=== PATIENT | female | born 1960 | race Caucasian/White ===

== ENCOUNTER 2017-09-26 08:36 | Emergency (ER) | payer OTHER ==
[~2017-09-26] VITALS: Ht 157.5 cm; Wt 81.7 kg
[~2017-09-26 08:36] MED LIST: ALBU90OI INH; ALBU90OI61 INH; AMOX500 PO; Aspirin EC325 MG PO; CIPRO500 MG PO; CODGUAEL PO; Flagyl500 MG PO; HYDACE5 PO; Hydrochlorothia25 MG PO; IBUP800 PO; LEVFLO500 PO; LISI20 PO; LOPE2C PO; NAPR500 PO; NICO14TP TOP; Norco 5-325 Ta1 EACH PO; OLME20-12. PO; OMEP20ER PO; OXYACE5T PO; PARO25 PO; PRED20 PO; PROM25 PO; TIOT18; TRAM50 PO; Ventolin Soln3 ML INH; Zofran Odt4 MG SL
[2017-09-26] MEDS ORDERED: HYDCHL25 PO (09:15)
[2017-09-26] MEDS ORDERED: LOSA50 PO (09:15)
[2017-09-26] MEDS ORDERED: MECL12.5 PO (10:51)
== END 2017-09-26 10:58 | disposition home or self-care (01) ==
LOC: ER 08:36
DX: H83.09 Labyrinthitis, unspecified ear (principal); R42 Dizziness and giddiness; Z88.8 Allergy status to other drugs, medicaments and biological substances; Z88.1 Allergy status to other antibiotic agents; Z79.899 Other long term (current) drug therapy; Z79.82 Long term (current) use of aspirin; F43.10 Post-traumatic stress disorder, unspecified; F32.9 Major depressive disorder, single episode, unspecified; I10 Essential (primary) hypertension; F17.210 Nicotine dependence, cigarettes, uncomplicated
CPT/HCPCS: 36415; 93005; 93010; 99283

== ENCOUNTER 2019-02-27 10:54 | Emergency (ER) | payer OTHER ==
[~2019-02-27] VITALS: Ht 160 cm; Wt 89.4 kg
[~2019-02-27 10:54] MED LIST changes: +HYDCHL25 PO; +LOSA50 PO; +MECL12.5 PO
[2019-02-27 11:33] LABS: Source, Urine Clean Catch
[2019-02-27 11:35] LABS: Bilirubin, Urine Neg (Neg); Blood, Urine 2+ (Neg); Glucose Qualitative, Urine Neg (Neg); Ketones, Urine 1+ (Neg); Leukocyte Esterase, Urine 1+ (Neg); Nitrite, Urine Neg (Neg); Protein, Urine Neg (Neg); Specific Gravity, Urine 1.015 (1.003-1.022); Urobilinogen, Urine 2+ (Normal); pH, Urine 6.5 (5.0-8.0)
[2019-02-27 11:46] LABS: Appearance, Urine Clear (Clear); Color, Urine Yellow (P-Yellow)
[2019-02-27 11:49] LABS: White Blood Cells, Urine 0-2 /hpf (0-5)
[2019-02-27 11:50] LABS: Bacteria Few /hpf; Mucus Light (0-Heavy); Squamous Epithelial Cells Mod /hpf (Few)
[2019-02-27 12:00] LABS: BASOPHILS ABSOLUTE AUTO 0.05 K/mm3 (0.00-0.23); BASOPHILS PERCENT AUTO 1 % (0-2); EOSINOPHILS ABSOLUTE AUTO 0.17 K/mm3 (0.00-0.68); EOSINOPHILS PERCENT AUTO 3 % (0-6); Hematocrit 49.2 % (33.0-51.0); Hemoglobin 16.5 g/dL (11.5-16.0); IMMATURE GRAN ABSOLUTE AUTO 0.01 K/mm3 (0.00-0.10); IMMATURE GRAN PERCENT AUTO 0 % (0-1); LYMPHOCYTES ABSOLUTE AUTO 1.44 K/mm3 (0.84-5.20); LYMPHOCYTES PERCENT AUTO 22 % (21-46); MONOCYTES ABSOLUTE AUTO 0.68 K/mm3 (0.16-1.47); MONOCYTES PERCENT AUTO 10 % (4-13); Mean Corpuscular HGB 31.1 pg (26.0-34.0); Mean Corpuscular HGB Conc 33.5 g/dL (31.5-36.5); Mean Corpuscular Volume 93 fL (80-100); Mean Platelet Volume 9.3 fL (9.1-12.4); NEUTROPHILS ABSOLUTE AUTO 4.33 K/mm3 (1.96-9.15); NEUTROPHILS PERCENT AUTO 65 % (41-73); Platelet Count 274 K/mm3 (150-400); RDW Coefficient Variation 12.2 % (11.7-14.2); RDW Standard Deviation 42.2 fL (35.1-46.3); White Blood Cell Count 6.68 K/mm3 (4.00-11.30)
[2019-02-27 12:15] LABS: Alanine Aminotransfer (ALT/SGP 32 U/L (12-78); Albumin, Blood 3.4 g/dL (3.4-5.0); Albumin/Globulin Ratio 0.9 (0.8-1.8); Alk Phos 84 U/L (50-136); Anion Gap 3 mmol/L (6-16); Aspartate Aminotrans (AST/SGOT 17 U/L (12-37); Bilirubin, Total 0.3 mg/dL (0.1-1.0); Blood Urea Nitrogen 14 mg/dL (8-24); Bun/Creatinine Ratio 23.7 (12.0-20.0); CO2, Blood 31 mmol/L (21-32); Calcium, Blood 8.6 mg/dL (8.5-10.1); Chloride, Blood 107 mmol/L (98-108); Creatinine, Blood 0.59 mg/dL (0.40-1.00); Globulin, Blood 3.8 g/dL (2.2-4.0); Glomerular Filtration Rate >60 (60-); Glucose, Blood 107 mg/dL (70-99); Potassium, Blood 4.1 mmol/L (3.5-5.5); Sodium, Blood 141 mmol/L (136-145); Total Protein, Blood 7.2 g/dL (6.4-8.2)
[2019-02-27] MEDS ORDERED: LOSARTAN-HCTZ1 EACH PO (13:45)
[2019-02-27] MEDS ORDERED: IBUP600 PO (13:45)
[2019-02-27] MEDS ORDERED: Ultram50 MG PO (13:45)
[2019-02-27] MEDS ORDERED: Robaxin-750750 MG PO (13:45)
== END 2019-02-27 14:10 | disposition home or self-care (01) ==
LOC: ER 10:54
PROVIDERS: Emergency Medicine
DX: M54.5 Low back pain (principal); I10 Essential (primary) hypertension; Z88.8 Allergy status to other drugs, medicaments and biological substances; Z88.1 Allergy status to other antibiotic agents; Z79.899 Other long term (current) drug therapy; Z79.82 Long term (current) use of aspirin; F43.10 Post-traumatic stress disorder, unspecified; F32.9 Major depressive disorder, single episode, unspecified; Z72.0 Tobacco use
CPT/HCPCS: 80053; 81001; 83690; 85025; 87086; 96374; 99283-25; J1885

== ENCOUNTER 2021-01-24 15:19 | Emergency (ER) | payer OTHER ==
[~2021-01-24] VITALS: Ht 157.5 cm; Wt 108.9 kg
[~2021-01-24 15:19] MED LIST changes: +IBUP600 PO; +LOSARTAN-HCTZ1 EACH PO; +Robaxin-750750 MG PO; +Ultram50 MG PO
[2021-01-24 16:16] LABS: BASOPHILS ABSOLUTE AUTO 0.05 K/mm3 (0.00-0.23); BASOPHILS PERCENT AUTO 0 % (0-2); EOSINOPHILS ABSOLUTE AUTO 0.14 K/mm3 (0.00-0.68); EOSINOPHILS PERCENT AUTO 1 % (0-6); Hematocrit 47.4 % (33.0-51.0); Hemoglobin 16.4 g/dL (11.5-16.0); IMMATURE GRAN ABSOLUTE AUTO 0.03 K/mm3 (0.00-0.10); IMMATURE GRAN PERCENT AUTO 0 % (0-1); LYMPHOCYTES ABSOLUTE AUTO 1.69 K/mm3 (0.84-5.20); LYMPHOCYTES PERCENT AUTO 15 % (21-46); MONOCYTES ABSOLUTE AUTO 1.05 K/mm3 (0.16-1.47); MONOCYTES PERCENT AUTO 9 % (4-13); Mean Corpuscular HGB 30.1 pg (26.0-34.0); Mean Corpuscular HGB Conc 34.6 g/dL (31.5-36.5); Mean Corpuscular Volume 87 fL (80-100); Mean Platelet Volume 9.2 fL (9.1-12.4); NEUTROPHILS ABSOLUTE AUTO 8.58 K/mm3 (1.96-9.15); NEUTROPHILS PERCENT AUTO 74 % (41-73); Platelet Count 340 K/mm3 (150-400); RDW Coefficient Variation 12.2 % (11.7-14.2); Red Blood Cell Count 5.44 M/mm3 (3.80-5.20); White Blood Cell Count 11.54 K/mm3 (4.00-11.30)
[2021-01-24 16:35] LABS: Alanine Aminotransfer (ALT/SGP 29 U/L (12-78); Albumin, Blood 3.4 g/dL (3.4-5.0); Albumin/Globulin Ratio 0.8 (0.8-1.8); Alk Phos 99 U/L (50-136); Anion Gap 4 mmol/L (6-16); Aspartate Aminotrans (AST/SGOT 15 U/L (12-37); Bilirubin, Total 0.5 mg/dL (0.1-1.0); Blood Urea Nitrogen 8 mg/dL (8-24); Bun/Creatinine Ratio 14.7 (12.0-20.0); CO2, Blood 29 mmol/L (21-32); Calcium, Blood 8.4 mg/dL (8.5-10.1); Chloride, Blood 98 mmol/L (98-108); Creatinine, Blood 0.54 mg/dL (0.40-1.00); Glomerular Filtration Rate >60 (60-); Glucose, Blood 89 mg/dL (70-99); Potassium, Blood 4.1 mmol/L (3.5-5.5); Sodium, Blood 131 mmol/L (136-145); Total Protein, Blood 7.4 g/dL (6.4-8.2); Troponin I <0.015 ng/mL (0.000-0.040)
[2021-01-24] MEDS ORDERED: Ventolin5 MG/1 ML INH (18:30)
[2021-01-24] MEDS ORDERED: ALBU90OI INH (18:30)
[2021-01-24] MEDS ORDERED: Toprol Xl25 MG PO (20:20)
[2021-01-24] MEDS ORDERED: HYDCHL25 PO (20:20)
== END 2021-01-24 21:19 | disposition home or self-care (01) ==
LOC: ER 15:19
PROVIDERS: Physician Assistant
DX: I10 Essential (primary) hypertension (principal); R60.0 Localized edema; J44.9 Chronic obstructive pulmonary disease, unspecified; F17.210 Nicotine dependence, cigarettes, uncomplicated; Z79.82 Long term (current) use of aspirin; Z88.8 Allergy status to other drugs, medicaments and biological substances; Z88.1 Allergy status to other antibiotic agents; Z79.899 Other long term (current) drug therapy
CPT/HCPCS: 71046; 80053; 83880; 84484; 85025; 93005; 93010; 96374; 99284-25; A9270; J1940

== ENCOUNTER 2022-04-03 08:21 | Inpatient (IN) | payer OTHER ==
[~2022-04-03] VITALS: Ht 157.5 cm; Wt 101.9 kg
[~2022-04-03 08:21] MED LIST changes: +Toprol Xl25 MG PO; +Ventolin5 MG/1 ML INH
[2022-04-03] MEDS ORDERED: AMLODIPINE BESYL5 MG PO (08:45)
[2022-04-03] MEDS ORDERED: METFORMIN500 MG/51 PO (08:46)
[2022-04-03] MEDS ORDERED: ANORO ELLIPTA1 EAC1 INH (08:46)
[2022-04-03] MEDS ORDERED: Cyclobenzaprine5 MG PO (08:46)
[2022-04-03 08:56] LABS: BASOPHILS ABSOLUTE AUTO 0.03 K/mm3 (0.00-0.23); BASOPHILS PERCENT AUTO 1 % (0-2); EOSINOPHILS ABSOLUTE AUTO 0.28 K/mm3 (0.00-0.68); EOSINOPHILS PERCENT AUTO 4 % (0-6); Hematocrit 45.7 % (33.0-51.0); Hemoglobin 15.4 g/dL (11.5-16.0); IMMATURE GRAN ABSOLUTE AUTO 0.02 K/mm3 (0.00-0.10); IMMATURE GRAN PERCENT AUTO 0 % (0-1); LYMPHOCYTES ABSOLUTE AUTO 1.28 K/mm3 (0.84-5.20); LYMPHOCYTES PERCENT AUTO 20 % (21-46); MONOCYTES ABSOLUTE AUTO 0.51 K/mm3 (0.16-1.47); MONOCYTES PERCENT AUTO 8 % (4-13); Mean Corpuscular HGB 29.6 pg (26.0-34.0); Mean Corpuscular HGB Conc 33.7 g/dL (31.5-36.5); Mean Corpuscular Volume 88 fL (80-100); Mean Platelet Volume 8.9 fL (9.1-12.4); NEUTROPHILS ABSOLUTE AUTO 4.26 K/mm3 (1.96-9.15); NEUTROPHILS PERCENT AUTO 67 % (41-73); Platelet Count 312 K/mm3 (150-400); RDW Coefficient Variation 11.9 % (11.7-14.2); Red Blood Cell Count 5.21 M/mm3 (3.80-5.20); White Blood Cell Count 6.38 K/mm3 (4.00-11.30)
[2022-04-03 08:57] LABS: Base Excess Venous 5.1 mmol/L; Bicarbonate Venous 27.7 mmol/L (24.0-30.0); PCO2 Venous 51.2 mmHg (38-42); pH Blood Venous 7.38 (7.34-7.37)
[2022-04-03 09:14] LABS: Albumin, Blood 3.4 g/dL (3.4-5.0); Albumin/Globulin Ratio 0.9 (0.8-1.8); Bilirubin, Direct 0.1 mg/dL (0.0-0.3); Bilirubin, Indirect 0.3 mg/dL (0.1-0.7); Bilirubin, Total 0.4 mg/dL (0.1-1.0); Bun/Creatinine Ratio 19.6 (12.0-20.0); Calcium, Blood 8.9 mg/dL (8.5-10.1); Creatinine, Blood 0.51 mg/dL (0.40-1.00); Globulin, Blood 3.9 g/dL (2.2-4.0); Potassium, Blood 4.2 mmol/L (3.5-5.5); Total Protein, Blood 7.3 g/dL (6.4-8.2)
[2022-04-03 10:33] LABS: Influenza A, PCR NEGATIVE (NEGATIVE); Influenza B, PCR NEGATIVE (NEGATIVE); Resp Syncytial Virus, PCR NEGATIVE (NEGATIVE); SARS-Cov-2 (COVID-19) PCR, MMC NEGATIVE (NEGATIVE)
[2022-04-03 11:32] LABS: Base Excess Venous 0.3 mmol/L; Bicarbonate Venous 23.6 mmol/L (24.0-30.0); PCO2 Venous 55.7 mmHg (38-42); pH Blood Venous 7.29 (7.34-7.37)
--- NOTE | 2022-04-03 12:49 | NUR ---
Telephone report received from ED RN at this time. Pt will be coming to [facility] 7 shortly.
--- NOTE | 2022-04-03 14:27 | NUR ---
Pt arrived to [facility] 7 at approx 1315. Alert, oriented, able to speak in phrases. Wearing oxygen at 3 l/min; states that she wears oxygen 2 l/min at all times at home. Able to stand and transfer from the stretcher to the bed in the room with minimal assitance. Occasional cough. Declines the bipap at this time, states that she is hungry and would like to eat. STates that she was prescribed a CPAP/BIPAP machine in the past but that it "never got delivered". I am not sure what happened with this. She also says that she was put on oxygen a year ago, but never had a referral to the rn occupational health, and never had any education about COPD in the outpatient setting. She was able to sit up and eat and drink without difficulty. Levaquin infusing via right arm AC space IV, which is WNL. Vital signs taken; noted that the pt is hypertensive. She says that she did not take any of her medications this morning. These were given to her here. Pt also says that she would like to fill out an advanced directive form with someone. Palliative care order placed for this purpose. SCDs on. Pt's daughter Pam was at the bedside, but after the pt was settled in the room she went to the pt's house to take care of the cat and intends to return later she said.
[2022-04-03 15:36] LABS: Base Excess Venous -1.2 mmol/L; Bicarbonate Venous 22.5 mmol/L (24.0-30.0); PCO2 Venous 52.7 mmHg (38-42); pH Blood Venous 7.29 (7.34-7.37)
--- NOTE | 2022-04-03 16:41 | NUR ---
Pt wore bipap briefly just before the last VBG was drawn.She does not tolerate the bipap well. She remains alert, oriented, and able to transfer independently from the bed to the bedside commode for toileting. Moderate shorness of breath noted during and following activity. Wearing oxygen at 3 l/min; her baseline oxygen dose is 2 l/min. She is coughing after activity, barely bringing up any sputum. What she does cough up is thin, tiny amounts and clear in color.
--- NOTE | 2022-04-03 16:57 | NUR ---
wEARING BIPAP AND TOLERATING IT WELL. BLOOD PRESSURE REMAINS ELEVATED AFTER TAKING HER NORVASC AND HYDROCHLOROTHIAZIDE.
--- NOTE | 2022-04-03 17:02 | NUR ---
Call to Dr. Carter regarding pt's persisent high blood pressure. Left voice mail. The pt appears to be resting comfortably on the bipap at this time, RR 22 / min. spo2 95% on fiO2 35%.
--- NOTE | 2022-04-03 17:49 | NUR ---
Call from Dr. Roman; states that Dr. Rodriguez is covering for [facility]'s admitted patients. Call to Dr. Rodriguez and new order for prn hydralazine received.
--- NOTE | 2022-04-03 18:43 | NUR ---
Pt is tearful, saying that she is afraid that the pain in her back might be from cancer. States that she also feels restless in her legs and feet, and that when this happens at home she gets up and paces around. Took off bipap, now sitting on side of bed . Requesting a fan to help her feel cooler also. Pt requesting COPD educational materials. Order for RT COPD education was placed, and also printed pt education materials for her to read in the meantime. Provided emtional reassurance.
[2022-04-03 20:42] LABS: pH Blood Venous 7.39 (7.34-7.37)
[2022-04-03 20:43] LABS: Base Excess Venous 4.2 mmol/L; Bicarbonate Venous 27.3 mmol/L (24.0-30.0)
--- NOTE | 2022-04-04 06:18 | NUR ---
Assumed care of pt at 1900. A/Ox4, very anxious. Reports recent upper back pain, but is able to manage with repositioning. Patient reports RLS although undiagnosed. Patient multiple times t/o the night had to get up to sit at side of bed. Maintains over 92% on 3L NC or Bipap 10/5 30% (for which she wore about 6 hours total. LS coarse in RUL, ISABEL, and RML, and dim LLL RLL. VSS. Will report to dayshift RN.
[2022-04-04 06:41] LABS: Hematocrit 42.6 % (33.0-51.0); Hemoglobin 13.8 g/dL (11.5-16.0); Mean Corpuscular HGB 28.9 pg (26.0-34.0); Mean Corpuscular HGB Conc 32.4 g/dL (31.5-36.5); Mean Corpuscular Volume 89 fL (80-100); Mean Platelet Volume 9.4 fL (9.1-12.4); Platelet Count 337 K/mm3 (150-400); RDW Coefficient Variation 11.9 % (11.7-14.2); RDW Standard Deviation 38.8 fL (35.1-46.3); Red Blood Cell Count 4.78 M/mm3 (3.80-5.20); White Blood Cell Count 11.68 K/mm3 (4.00-11.30)
[2022-04-04 06:52] LABS: Bun/Creatinine Ratio 24.6 (12.0-20.0); Calcium, Blood 8.8 mg/dL (8.5-10.1); Creatinine, Blood 0.45 mg/dL (0.40-1.00)
[2022-04-04 10:54] LABS: pH Blood Venous 7.45 (7.34-7.37)
[2022-04-04 10:55] LABS: Base Excess Venous 8.9 mmol/L; Bicarbonate Venous 31.3 mmol/L (24.0-30.0); PCO2 Venous 47.9 mmHg (38-42)
[2022-04-04] MEDS ORDERED: HYDCHL25 PO (12:09)
[2022-04-04] MEDS ORDERED: METF500 PO (12:11)
[2022-04-04] MEDS ORDERED: METO25ER PO (12:12)
[2022-04-04] MEDS ORDERED: NICO21TP TOP (12:13)
[2022-04-04] MEDS ORDERED: LEVOFLOXACIN750 M1 PO (12:13)
[2022-04-04] MEDS ORDERED: VISBIOME 112.51 EACH PO (12:13)
[2022-04-04] MEDS ORDERED: PRED20 PO (12:14)
--- NOTE | 2022-04-04 13:27 | NUR ---
Summary of two visits. [facility] and Healthcare rep is Pam Garcia [phone]. [facility] Care referral received on admission yesterday for completion of advanced directive per pt request. She voiced concern that she wanted her dion to be her HC proxy and not her estranged . Both advanced directive and POLST forms reviewed in detail with pt and her dion, Pam Garcia. We started completion of AD and pt indicated her choice for for no life prolonging measures if she were found in any of the four conditions listed in the AD form. Currently pt desires Full code status and full treatment but would not want her life prolonged with respiratory support, dialysis or artificial nutrition group home if she did not recover in a number of weeks. Her daughter is supportive of this. Pt names Pam Garcia as her HC call center representative and her other dion, Darius Lal [phone] as an alternate HC call center representative. Upon arrival to introduce myself both dion and pt requested that we fill out an AD together, which we did except for acceptance and witness signatures. Pt also stated she hadn't been given any information re: her COPD from Drs. She states she requested a pulmonology consult and believes that is in the works. I recommended she talk to her drs re: OP Pulmonary Rehab and whether or not she would be appropriate for that in the future. Explained the program and weekly education she would receive in [place]. Discussed smoking cessation with pt as the #1 helpful thing she could do for her lungs/health. Pt is dyspnic at rest with nasal canula O2 in place. Pt appears to be anxious, dyspnic and in discomfort. Assisted her with sitting up in tripod position in bed. She verbalized change of position helped. Time spent discussing advanced care planning documents and considerations. I gave dion/pt booklet "hard choices for loving people to reivew and discuss with PCP. I gave pt POLST form and explained all options. I asked that she discuss further with her PCP. I requested that when AD/POLST completed that she bring copies in to medical records for scanning into her EMR. I instructed her to provide PCP and other Drs with a copy and her surrogate decision makers also. Pt and dion verbalized understanding and appreciation for the the visit. When I returned to bring pt info on Pulmonary Rehab and f/u on am visit, pt reports that she is being d/c'd home today. She is very happy about that.
--- NOTE | 2022-04-04 15:50 | NUR ---
DISCHARGE SUMMARY S/P COPD EXACERBATION, A/O X4, VSS, TOLERATING PO, AMBULATING INDEPENDENTLY OTHER THAN CORD/LINE MANAGEMENT, VOIDING WELL. DISCUSSED DISCHARGE INFORMATION WITH PT INCLUDING HOME CARE, MEDICATIONS, FOLLOW UP APPOINTMENTS, AND WENT OVER PROVIDED EDUCATION ON COPD AND NEW MEDICATIONS. PRINTED COPIES PROVIDED, PT WAS ALSO GIVEN ADDITIONAL COPD INFORMATION PRIOR TO DISCHARGE FROM A MEMBER OF RESPIRATORY THERAPY. PT HAD NO QUESTIONS AT TIME OF DISCHARGE, PT ESCORTED OUT VIA WC TO GO HOME WITH HER DAUGHTER.
== END 2022-04-04 14:42 | disposition home or self-care (01) | DRG 193 ==
LOC: ER 08:21 → PCU 08:22
PROVIDERS: Nurse Practitioner Acute Care; Student in an Organized Health Care Education/Training Program; ADMIT Internal Medicine
PROC: 5A09357 Assistance with Respiratory Ventilation, Less than 24 Consecutive Hours, Continuous Positive Airway Pressure (ICD-10-PCS; principal; 2022-04-04)
DX: J18.9 Pneumonia, unspecified organism (principal); J96.21 Acute and chronic respiratory failure with hypoxia; J96.22 Acute and chronic respiratory failure with hypercapnia; J44.1 Chronic obstructive pulmonary disease with (acute) exacerbation; F41.9 Anxiety disorder, unspecified; E11.9 Type 2 diabetes mellitus without complications; I10 Essential (primary) hypertension; F17.210 Nicotine dependence, cigarettes, uncomplicated; Z20.822 Contact with and (suspected) exposure to COVID-19; F43.10 Post-traumatic stress disorder, unspecified; F32.A Depression, unspecified; K57.90 Diverticulosis of intestine, part unspecified, without perforation or abscess without bleeding; Z99.81 Dependence on supplemental oxygen; Z79.51 Long term (current) use of inhaled steroids; Z88.8 Allergy status to other drugs, medicaments and biological substances; Z88.1 Allergy status to other antibiotic agents; Z79.899 Other long term (current) drug therapy; Z79.82 Long term (current) use of aspirin; Z98.890 Other specified postprocedural states
CPT/HCPCS: 0241U; 36415; 71045; 76705; 80048; 80076; 82803; 82947; 83690; 83735; 83880; 84145; 84484; 85025; 85027; 93005; 93010; 94640; 94644; 94645; 94660; 94664; 94667; 94762; 96365; 96366; 96372; 96375; 96376; 98960; 99285-25; 99406; A9270; G0378; J0360; J0696; J1650; J1885; J1956; J2060; J2405; J2930; J3360; J7030

== ENCOUNTER 2022-04-30 07:36 | Observation (INO) | payer OTHER ==
[~2022-04-30] VITALS: Ht 157.5 cm; Wt 97.8 kg
[~2022-04-30 07:36] MED LIST changes: +AMLODIPINE BESYL5 MG PO; +ANORO ELLIPTA1 EAC1 INH; +Cyclobenzaprine5 MG PO; +LEVOFLOXACIN750 M1 PO; +METF500 PO; +METFORMIN500 MG/51 PO; +METO25ER PO; +NICO21TP TOP; +VISBIOME 112.51 EACH PO
[2022-04-30 08:23] LABS: BASOPHILS ABSOLUTE AUTO 0.03 K/mm3 (0.00-0.23); BASOPHILS PERCENT AUTO 0 % (0-2); EOSINOPHILS ABSOLUTE AUTO 0.25 K/mm3 (0.00-0.68); EOSINOPHILS PERCENT AUTO 3 % (0-6); Hematocrit 47.1 % (33.0-51.0); Hemoglobin 15.3 g/dL (11.5-16.0); IMMATURE GRAN ABSOLUTE AUTO 0.02 K/mm3 (0.00-0.10); IMMATURE GRAN PERCENT AUTO 0 % (0-1); LYMPHOCYTES ABSOLUTE AUTO 0.94 K/mm3 (0.84-5.20); LYMPHOCYTES PERCENT AUTO 12 % (21-46); MONOCYTES ABSOLUTE AUTO 0.46 K/mm3 (0.16-1.47); MONOCYTES PERCENT AUTO 6 % (4-13); Mean Corpuscular HGB 29.1 pg (26.0-34.0); Mean Corpuscular HGB Conc 32.5 g/dL (31.5-36.5); Mean Corpuscular Volume 90 fL (80-100); Mean Platelet Volume 8.7 fL (9.1-12.4); NEUTROPHILS ABSOLUTE AUTO 6.04 K/mm3 (1.96-9.15); NEUTROPHILS PERCENT AUTO 78 % (41-73); Platelet Count 353 K/mm3 (150-400); RDW Coefficient Variation 11.9 % (11.7-14.2); Red Blood Cell Count 5.25 M/mm3 (3.80-5.20); White Blood Cell Count 7.74 K/mm3 (4.00-11.30)
[2022-04-30 08:41] LABS: Albumin, Blood 3.3 g/dL (3.4-5.0); Albumin/Globulin Ratio 0.8 (0.8-1.8); Bilirubin, Total 0.4 mg/dL (0.1-1.0); Bun/Creatinine Ratio 17.6 (12.0-20.0); Calcium, Blood 8.4 mg/dL (8.5-10.1); Creatinine, Blood 0.51 mg/dL (0.40-1.00); Globulin, Blood 4.4 g/dL (2.2-4.0); Potassium, Blood 4.4 mmol/L (3.5-5.5); Total Protein, Blood 7.7 g/dL (6.4-8.2)
--- NOTE | 2022-04-30 10:12 | NUR ---
ED Palliative Care Consult Spoke with Dr Prajapati and discussed case. Based off imaging Pt appears to have metatstatic lung caner with result just being discussed prior to this RN's arrival. Pt resting on gurney upon arrival. Pt's daugher Pam arrives. Discussed plan for hospitalist to consider admiting with Pt and daughter being in agreement. Offered active listening and answered questions. Pt and family express appreciation and report no other concerns at this time. Palliative Care will F/U for supportive visits.
[2022-04-30 10:56] LABS: International Normalized Ratio 0.99; Prothrombin Time Results 10.4 Sec (9.7-11.5)
[2022-04-30 12:20] LABS: Influenza A, PCR NEGATIVE (NEGATIVE); Influenza B, PCR NEGATIVE (NEGATIVE); Resp Syncytial Virus, PCR NEGATIVE (NEGATIVE); SARS-Cov-2 (COVID-19) PCR, MMC NEGATIVE (NEGATIVE)
[2022-04-30 15:26] LABS: Automated BF RBC Count 0.028 M/mm3 (0-0)
[2022-04-30 15:30] LABS: Body Fluid WBC Count 2110 /mm3 (0-999); RBC Count, Body Fluid 28000 /mm3 (0-0)
[2022-04-30 15:41] LABS: Glucose, Body Fluid 170 mg/dL; Protein, Body Fluid 4.8 g/dL
[2022-04-30 15:44] LABS: Lactate Dehydrogenase, Body Fl 390 U/L
--- NOTE | 2022-04-30 16:00 | NUR ---
HYPERTENSION THIS RN CALLED DR. YOUSSEF AND DISCUSSED PT'S ELEVATED BLOOD PRESSURE AND THAT PT HAS NOT TAKEN HER BLOOD PRESSURE MEDICATIONS THE LAST 2 DAYS. ORDERS TO START PT'S BLOOD PRESSURE MEDICATIONS NOW INSTEAD OF TOMORROW AM. NO FURTHER ORDERS.
[2022-04-30 17:03] LABS: Appearance, Body Fluid Cloudy (Clear); Color, Body Fluid Brown (None-Yellow)
[2022-04-30 17:21] LABS: Total Cell Count, Body Fluid 100
--- NOTE | 2022-04-30 18:21 | NUR ---
SHIFT SUMMARY PT WAS A NEW ADMISSION THIS AFTERNOON. PT ALERT AND ORIENTED X4. C/O PAIN IN BACK WITH DEEP BREATHING AND WHEN TOUCHED. MEDICATED FOR PAIN PER EMAR AND PT'S PAIN HAS DECREASED AND TOLERABLE. OXYGEN AT 2L VIA NC AND IS PT'S BASELINE. PT HAS HAD A GOOD APPETITE AND EATING DINNER. FAMILY AT BEDSIDE. PT HAD THORACENTESIS OF RIGHT LUNG THIS AFTERNOON. NO ACUTE CHANGES THIS SHIFT. CALL LIGHT IN REACH. WILL CONTINUE TO MONITOR.
--- NOTE | 2022-05-01 04:28 | NUR ---
SHIFT SUMMARY PT C/O ACUTE PAIN IN HER R BACK WHERE THE THORACENTESIS WAS DONE. THE AREA IS VERY TENDER TO THE TOUCH AND CAUSES DISCOMFORT. MEDICATED WITH 1 TAB PERCOCET Q6 PER EMAR, PT STATES IT TAKES THE EDGE OF SO SHE CAN SLEEP. PT ON 2L O2 VIA NC WHICH IS HER BASELINE. NO ACUTE EVENTS, VSS, PT COOPERATIVE WITH CARE.
[2022-05-01] MEDS ORDERED: HYDPAM25 PO (15:55)
[2022-05-01] MEDS ORDERED: MIRALAX17 GM PO (15:55)
[2022-05-01] MEDS ORDERED: Senna-Extra17.2 MG PO (15:56)
[2022-05-01] MEDS ORDERED: Norco 10-325 T1 EACH PO (15:57)
--- NOTE | 2022-05-01 17:23 | NUR ---
DISCHARGE SUMMARY PT AxOx4. PLEASANT AND COOPERATIVE WITH CARE. PT REPORTED PAIN IN BACK AND STERNUM THIS SHIFT. DR NOTIFIED AND PAIN MEDS WERE ADMINISTERED PER EMAR. PT DISCHARGING HOME TODAY. PT GIVEN DC INSTRUCTIONS INCLUDING DC MEDICATION LIST, FOLLOW UP APPOINTMENT WITH PCP AND ONCOLOGY REFERRAL, AND PATIENT EDUCATION. PT VERBALIZES UNDERSTANDING. PT SAFELY ESCORTED OUT VIA WHEELCHAIR WITH PLUMBING DESIGNER AND FAMILY MEMBER.
== END 2022-05-01 16:33 | disposition home or self-care (01) ==
LOC: ER 07:36 → ERHOLD 07:37 → MEDS 13:52
PROVIDERS: Emergency Medicine; Nurse Practitioner Acute Care; ADMIT Internal Medicine
DX: C34.91 Malignant neoplasm of unspecified part of right bronchus or lung (principal); J91.0 Malignant pleural effusion; J44.1 Chronic obstructive pulmonary disease with (acute) exacerbation; J96.22 Acute and chronic respiratory failure with hypercapnia; J96.21 Acute and chronic respiratory failure with hypoxia; C77.8 Secondary and unspecified malignant neoplasm of lymph nodes of multiple regions; K76.9 Liver disease, unspecified; J98.11 Atelectasis; I10 Essential (primary) hypertension; E11.9 Type 2 diabetes mellitus without complications; F17.290 Nicotine dependence, other tobacco product, uncomplicated; F17.210 Nicotine dependence, cigarettes, uncomplicated; F41.9 Anxiety disorder, unspecified; R07.89 Other chest pain; M54.89 Other dorsalgia; Z88.8 Allergy status to other drugs, medicaments and biological substances; Z88.1 Allergy status to other antibiotic agents; Z79.84 Long term (current) use of oral hypoglycemic drugs; Z79.82 Long term (current) use of aspirin; Z99.81 Dependence on supplemental oxygen; Z20.822 Contact with and (suspected) exposure to COVID-19
CPT/HCPCS: 0241U; 32555; 36415; 71045; 80053; 82945; 82947; 83615; 83880; 84157; 84484; 85025; 85610; 85730; 87070; 87205; 88108; 88305; 88341; 88342; 89051; 93005; 93010; 94640; 94644; 94664; 94760; 96374-59; 96375-59; 99285-25; A9270; G0378; J2270; J2405; J2930; J7512; Q0177

== ENCOUNTER 2022-05-09 02:58 | Emergency (ER) | payer OTHER ==
[~2022-05-09] VITALS: Ht 248.9 cm; Wt 97.1 kg
[~2022-05-09 02:58] MED LIST changes: +HYDPAM25 PO; +MIRALAX17 GM PO; +Norco 10-325 T1 EACH PO; +Senna-Extra17.2 MG PO
[2022-05-09 04:39] LABS: Base Excess Venous 10.8 mmol/L; Bicarbonate Venous 31.7 mmol/L (24.0-30.0); PCO2 Venous 64.1 mmHg (38-42); pH Blood Venous 7.36 (7.34-7.37)
[2022-05-09] MEDS ORDERED: PRED20 PO (06:38)
[2022-05-09] MEDS ORDERED: ALBU90OI INH (06:44)
== END 2022-05-09 07:05 | disposition home or self-care (01) ==
LOC: ER 02:58
PROVIDERS: Student in an Organized Health Care Education/Training Program
DX: J44.1 Chronic obstructive pulmonary disease with (acute) exacerbation (principal); J90 Pleural effusion, not elsewhere classified; C78.00 Secondary malignant neoplasm of unspecified lung; C78.7 Secondary malignant neoplasm of liver and intrahepatic bile duct; Z88.8 Allergy status to other drugs, medicaments and biological substances; Z79.899 Other long term (current) drug therapy; Z79.4 Long term (current) use of insulin; Z79.82 Long term (current) use of aspirin; Z87.891 Personal history of nicotine dependence
CPT/HCPCS: 36415; 71046; 82803; 93005; 93010; 94640; 94664; 96374; 99285-25; J1170; J7512

== ENCOUNTER 2022-05-31 08:56 | Emergency (ER) | payer OTHER ==
[~2022-05-31] VITALS: Ht 157.5 cm; Wt 97.1 kg
[2022-05-31 11:01] LABS: Base Excess Venous 8.9 mmol/L; Bicarbonate Venous 30.3 mmol/L (24.0-30.0); PCO2 Venous 63.8 mmHg (38-42); pH Blood Venous 7.34 (7.34-7.37)
[2022-05-31 11:03] LABS: BASOPHILS ABSOLUTE AUTO 0.01 K/mm3 (0.00-0.23); BASOPHILS PERCENT AUTO 0 % (0-2); EOSINOPHILS ABSOLUTE AUTO 0.02 K/mm3 (0.00-0.68); EOSINOPHILS PERCENT AUTO 0 % (0-6); Hematocrit 44.2 % (33.0-51.0); Hemoglobin 14.4 g/dL (11.5-16.0); IMMATURE GRAN ABSOLUTE AUTO 0.03 K/mm3 (0.00-0.10); IMMATURE GRAN PERCENT AUTO 0 % (0-1); LYMPHOCYTES ABSOLUTE AUTO 0.91 K/mm3 (0.84-5.20); LYMPHOCYTES PERCENT AUTO 10 % (21-46); MONOCYTES ABSOLUTE AUTO 0.56 K/mm3 (0.16-1.47); MONOCYTES PERCENT AUTO 6 % (4-13); Mean Corpuscular HGB 29.3 pg (26.0-34.0); Mean Corpuscular HGB Conc 32.6 g/dL (31.5-36.5); Mean Corpuscular Volume 90 fL (80-100); NEUTROPHILS ABSOLUTE AUTO 8.06 K/mm3 (1.96-9.15); NEUTROPHILS PERCENT AUTO 84 % (41-73); Platelet Count 373 K/mm3 (150-400); RDW Coefficient Variation 12.1 % (11.7-14.2); RDW Standard Deviation 39.7 fL (35.1-46.3); Red Blood Cell Count 4.92 M/mm3 (3.80-5.20); White Blood Cell Count 9.59 K/mm3 (4.00-11.30)
[2022-05-31 11:25] LABS: International Normalized Ratio 0.94; Magnesium, Blood 2.1 mg/dL (1.6-2.4); Prothrombin Time Results 9.9 Sec (9.7-11.5)
[2022-05-31 11:26] LABS: Albumin/Globulin Ratio 0.7 (0.8-1.8); Bilirubin, Total 0.3 mg/dL (0.1-1.0); Calcium, Blood 7.8 mg/dL (8.5-10.1); Creatinine, Blood 0.38 mg/dL (0.40-1.00); Globulin, Blood 4.1 g/dL (2.2-4.0); Potassium, Blood 4.1 mmol/L (3.5-5.5); Total Protein, Blood 7.1 g/dL (6.4-8.2)
[2022-05-31 13:45] LABS: Influenza A, PCR NEGATIVE (NEGATIVE); Influenza B, PCR NEGATIVE (NEGATIVE); Resp Syncytial Virus, PCR NEGATIVE (NEGATIVE); SARS-Cov-2 (COVID-19) PCR, MMC NEGATIVE (NEGATIVE)
[2022-05-31] MEDS ORDERED: DOXY100 PO (14:29)
[2022-05-31] MEDS ORDERED: PRED20 PO (14:29)
== END 2022-05-31 15:09 | disposition home or self-care (01) ==
LOC: ER 08:56
PROVIDERS: Student in an Organized Health Care Education/Training Program
DX: J44.1 Chronic obstructive pulmonary disease with (acute) exacerbation (principal); J90 Pleural effusion, not elsewhere classified; Z99.81 Dependence on supplemental oxygen; Z88.8 Allergy status to other drugs, medicaments and biological substances; Z88.1 Allergy status to other antibiotic agents; Z79.899 Other long term (current) drug therapy; Z79.891 Long term (current) use of opiate analgesic; Z79.84 Long term (current) use of oral hypoglycemic drugs; Z79.52 Long term (current) use of systemic steroids; Z79.82 Long term (current) use of aspirin; I10 Essential (primary) hypertension; E11.9 Type 2 diabetes mellitus without complications; F43.10 Post-traumatic stress disorder, unspecified
CPT/HCPCS: 0241U; 36415; 71045; 80053; 82803; 83735; 83880; 84484; 85025; 85610; 85730; 93005; 93010; 94644; 94645; 94664; J2930; J7060

== ENCOUNTER → 2022-07-24 | Outpatient (CLI) | payer OTHER ==
[~2022-07-24] MED LIST changes: +DOXY100 PO
[2022-07-24 11:15] LABS: BASOPHILS PERCENT AUTO 1 % (0-2); EOSINOPHILS ABSOLUTE AUTO 0.05 K/mm3 (0.00-0.68); EOSINOPHILS PERCENT AUTO 1 % (0-6); Hemoglobin 12.5 g/dL (11.5-16.0); IMMATURE GRAN ABSOLUTE AUTO 0.01 K/mm3 (0.00-0.10); IMMATURE GRAN PERCENT AUTO 0 % (0-1); LYMPHOCYTES ABSOLUTE AUTO 1.12 K/mm3 (0.84-5.20); LYMPHOCYTES PERCENT AUTO 16 % (21-46); MONOCYTES PERCENT AUTO 9 % (4-13); Mean Corpuscular HGB 29.4 pg (26.0-34.0); Mean Corpuscular HGB Conc 32.9 g/dL (31.5-36.5); Mean Corpuscular Volume 89 fL (80-100); NEUTROPHILS ABSOLUTE AUTO 5.02 K/mm3 (1.96-9.15); NEUTROPHILS PERCENT AUTO 73 % (41-73); Platelet Count 384 K/mm3 (150-400); RDW Coefficient Variation 14.8 % (11.7-14.2); RDW Standard Deviation 47.9 fL (35.1-46.3); Red Blood Cell Count 4.25 M/mm3 (3.80-5.20)
== END | disposition home or self-care (01) ==
LOC: LAB 10:22 → LAB SHORT 10:22
PROVIDERS: Internal Medicine Hematology & Oncology
DX: C34.90 Malignant neoplasm of unspecified part of unspecified bronchus or lung (principal)
CPT/HCPCS: 85025

== ENCOUNTER 2022-09-23 09:17 | Inpatient (IN) | payer OTHER ==
[~2022-09-23] VITALS: Ht 157.5 cm; Wt 87.8 kg
[~2022-09-23 09:17] MED LIST changes: +ALBU2.5V5 NEB; -METF500 PO; -Ventolin5 MG/1 ML INH
[2022-09-23] MEDS ORDERED: FENT200LOZ MM (09:43)
[2022-09-23 09:46] LABS: BASOPHILS ABSOLUTE AUTO 0.02 K/mm3 (0.00-0.23); BASOPHILS PERCENT AUTO 0 % (0-2); EOSINOPHILS PERCENT AUTO 6 % (0-6); Hematocrit 41.4 % (33.0-51.0); Hemoglobin 13.9 g/dL (11.5-16.0); IMMATURE GRAN ABSOLUTE AUTO 0.02 K/mm3 (0.00-0.10); IMMATURE GRAN PERCENT AUTO 0 % (0-1); LYMPHOCYTES ABSOLUTE AUTO 0.65 K/mm3 (0.84-5.20); LYMPHOCYTES PERCENT AUTO 10 % (21-46); MONOCYTES ABSOLUTE AUTO 0.52 K/mm3 (0.16-1.47); MONOCYTES PERCENT AUTO 8 % (4-13); Mean Corpuscular HGB 31.5 pg (26.0-34.0); Mean Corpuscular HGB Conc 33.6 g/dL (31.5-36.5); Mean Corpuscular Volume 94 fL (80-100); Mean Platelet Volume 8.8 fL (9.1-12.4); NEUTROPHILS ABSOLUTE AUTO 4.78 K/mm3 (1.96-9.15); NEUTROPHILS PERCENT AUTO 75 % (41-73); Platelet Count 219 K/mm3 (150-400); RDW Standard Deviation 44.8 fL (35.1-46.3); Red Blood Cell Count 4.41 M/mm3 (3.80-5.20); White Blood Cell Count 6.39 K/mm3 (4.00-11.30)
[2022-09-23 10:04] LABS: Albumin/Globulin Ratio 0.7 (0.8-1.8); Bilirubin, Total 0.5 mg/dL (0.1-1.0); Bun/Creatinine Ratio 28.4 (12.0-20.0); Calcium, Blood 8.8 mg/dL (8.5-10.1); Creatinine, Blood 0.39 mg/dL (0.40-1.00); Globulin, Blood 4.3 g/dL (2.2-4.0); Potassium, Blood 3.9 mmol/L (3.5-5.5); Total Protein, Blood 7.3 g/dL (6.4-8.2)
[2022-09-23 12:41] LABS: Anti-Xa UFH, PHA Monitoring <0.10 IU/mL; International Normalized Ratio 0.99; Prothrombin Time Results 10.4 Sec (9.7-11.5)
[2022-09-23] MEDS ORDERED: FENTANYL1 EA10 TD (15:06)
--- NOTE | 2022-09-23 18:01 | NUR ---
ADMIT ADMIT- PT ADMITTED FROM ER. ALERT AND ORIENTED X4. SOB NC 4L. RECEIVED REPORT FROM CASTILLO LOWRY IN ER PT ABLE TO TRANSFER TO BEDSIDE COMMODE WITH MINIMAL ASSIST. SOB EXACERBATED WITH EXERTION. PT HAS BEEN TEARFUL AND REPORTS HIGH LEVEL OF PAIN RELATED TO HISTORY. PALLIATIVE CARE CONSULTATION ORDERED. UNABLE TO SWALLOW SOME MEDICATIONS RELATED TO TEXTURE ISSUES. MD NOTIFIED. SEE ORDERS. BED IS IN THE LOWEST POSITION WITH CALL LIGHT IN REACH.
[2022-09-24 04:59] LABS: Hematocrit 37.9 % (33.0-51.0); Hemoglobin 12.7 g/dL (11.5-16.0); Mean Corpuscular HGB 31.7 pg (26.0-34.0); Mean Corpuscular HGB Conc 33.5 g/dL (31.5-36.5); Mean Corpuscular Volume 95 fL (80-100); Mean Platelet Volume 9.2 fL (9.1-12.4); Platelet Count 204 K/mm3 (150-400); RDW Coefficient Variation 12.9 % (11.7-14.2); RDW Standard Deviation 45.1 fL (35.1-46.3); Red Blood Cell Count 4.01 M/mm3 (3.80-5.20); White Blood Cell Count 4.82 K/mm3 (4.00-11.30)
[2022-09-24 05:16] LABS: Bun/Creatinine Ratio 27.8 (12.0-20.0); Calcium, Blood 8.5 mg/dL (8.5-10.1); Creatinine, Blood 0.32 mg/dL (0.40-1.00)
--- NOTE | 2022-09-24 05:37 | NUR ---
EM RYNA, PT STATED PSIN ALWAYS A 9/10 PAIN, GOT ORDERS TO INCREASE IV FENTENAL TO 25 NADINE TO 50 MICS AND NORCO EVERY 4 HR PRN. PT STILL VERY PAINFULL BUT THINKS IT MIGHT HAVE HELPED A SM AMOUNT. PT VERY EMOTINAL AND EXHAUSTED FORM BEING IN CONSTANT PAIN. AND PT NOT SURE SHE WANTS TO KEEP FIGHTING THE CA. CALL LIGHT IN REACH.
--- NOTE | 2022-09-24 07:37 | NUR ---
spoke to dr austin- PT BP ELEVATED. MORNING BP CONTROL MEDS GIVEN WILL RECHECK IN 1 HOUR. RECIEVED ORDER FOR AC/HS BG CHECKS.
[2022-09-24] MEDS ORDERED: Ondansetron Odt8 MG SL (07:48)
[2022-09-24] MEDS ORDERED: Cyclobenzaprine5 MG PO (07:52)
[2022-09-24] MEDS ORDERED: LOW DOSE ASPIRI81 M1 PO (07:55)
--- NOTE | 2022-09-24 18:11 | NUR ---
SHIFT SUMMARY- DR ARCINIEGA WAS CONSULTED, HE CAME TO SEE THE PT. PT REPORTS SHE "RECIEVED SOME BAD NEWS TODAY" AND SHE WANTED TO TALK TO SOMEONE ABOUT HOSPICE. WHEN PALLIATIVE CARE CASTILLO GOSS CAME TO TALK WITH THE PT SHE WAS NOT READY TO TALK AT THAT TIME. SPOKE TO THE PT ABOUT THE PLAN FOR THORACENTESIS TOMORROW AND SHE STATED SHE IS NOT GOING TO DO THAT. CALLED PALLIATIVE CARE RN IS CONTACTING DR ARCINIEGA THE PT STATES HE TOLD HER THERE WASNT ENOUGH TO DRAIN, HIS NOTE DOES NOT SEEM TO REFLECT THIS, CASTILLO GOSS IS CLARIFYING. CALLED DR BARBOZA, TO SPEAK ABOUT THIS, LEFT A MESSAGE WAITING FOR A CALL BACK. PT IN BED, CALL LIGHT IN REACH, HEPARIN DRIP INFUSING NO S&S OF DISTRESS AT THIS TIME MEDICATED FOR PAIN TWICE THIS SHIFT, SEE EMAR FOR DETAILS. WILL CTM AND PASS ON TO NIGHT RN IN BEDSIDE REPORT.
--- NOTE | 2022-09-25 03:55 | NUR ---
SHIFT UNREMARKABLE. PAIN IS WELL MANAGED ON CURRENT REGIMEN PER EMAR. CONTINUOUS HEPARIN DRIP HAS BEEN RUNNING THROUGHOUT SHIFT. DISCUSSION WITH CHARGE. PT HAS THORACENTESIS TODAY ON DAY SHIFT, WILL FINISH THIS BAG OF HEPARIN THEN SALINE LOCK TO ALLOW TIME BETWEEN HEPARIN INFUSION AND THORACENTESIS. CALL LIGHT LEFT WITHIN REACH.
[2022-09-25 05:48] LABS: Hematocrit 39.5 % (33.0-51.0); Hemoglobin 13.6 g/dL (11.5-16.0); Mean Corpuscular HGB 31.9 pg (26.0-34.0); Mean Corpuscular HGB Conc 34.4 g/dL (31.5-36.5); Mean Corpuscular Volume 93 fL (80-100); Mean Platelet Volume 9.7 fL (9.1-12.4); Platelet Count 140 K/mm3 (150-400); RDW Coefficient Variation 12.9 % (11.7-14.2); RDW Standard Deviation 43.9 fL (35.1-46.3); Red Blood Cell Count 4.27 M/mm3 (3.80-5.20); White Blood Cell Count 4.74 K/mm3 (4.00-11.30)
[2022-09-25 06:24] LABS: Anti-Xa UFH, PHA Monitoring 0.18 IU/mL; International Normalized Ratio 0.95
[2022-09-25 06:45] LABS: Anion Gap 6 mmol/L (6-16); Blood Urea Nitrogen 7 mg/dL (8-24); Bun/Creatinine Ratio 19.8 (12.0-20.0); CO2, Blood 31 mmol/L (21-32); Calcium, Blood 8.5 mg/dL (8.5-10.1); Chloride, Blood 97 mmol/L (98-108); Creatinine, Blood 0.35 mg/dL (0.40-1.00); Glomerular Filtration Rate 117 (60-); Glucose, Blood 102 mg/dL (70-99); Phosphorus, Blood 3.9 mg/dL (2.5-4.9); Potassium, Blood 3.7 mmol/L (3.5-5.5); Sodium, Blood 134 mmol/L (136-145)
--- NOTE | 2022-09-25 17:39 | NUR ---
SHIFT SUMMARY PT A&OX4 AND IN PLEASENT MOOD T/O SHIFT. MULTIPLE FAMILY MEMBERS IN TO SEE PT T/O SHIFT. TOLERATING PO INTAKE WELL. CALL LIGHT W/IN REACH. HEP RUNNING @ 22U/K/HR. IND TO BSC. BACK PAIN MEDICATED PER EMAR. PAWEL COMPLETED THIS SHIFT.
--- NOTE | 2022-09-26 03:55 | NUR ---
SHIFT MOSTLY UNREMARKABLE. PT REFUSED 2100 PO MEDS DUE TO REPORTED DIFFICULTY SWALLOWING PILLS. PAIN OCCASIONALLY PEAKS AT REPORTED 9/10 INTENSITY BUT IS ADEQUATELY MANAGED ON CURRENT MEDICATION REGIMEN. HEPARIN DRIP RUNNING THROUGHOUT SHIFT. BOTH IVs RUNNING, INFUSING, FLUSHING WELL. CALL LIGHT LEFT WITHIN REACH.
[2022-09-26] MEDS ORDERED: ELIQUIS5 M2 PO (11:37)
--- NOTE | 2022-09-26 13:40 | NUR ---
PT DC'D WITH INSTRUCTIONS, WHEELCHAIR AND PT'S PORTABLE OXYGEN TANK TO PRIVATE CAR, FRIEND IS DRIVING PT HOME. [facility], 2 HANDWRITTEN SCRIPTS FOR FENT PATCHES AND NORCO GIVEN TO PT IN DC PACKET
== END 2022-09-26 13:13 | disposition home or self-care (01) | DRG 180 ==
LOC: ER 09:17 → MEDS 09:18
PROVIDERS: Physician Assistant; ADMIT Internal Medicine
PROC: 0W993ZZ Drainage of Right Pleural Cavity, Percutaneous Approach (ICD-10-PCS; principal; 2022-09-25)
DX: C34.31 Malignant neoplasm of lower lobe, right bronchus or lung (principal); I26.99 Other pulmonary embolism without acute cor pulmonale; J91.0 Malignant pleural effusion; E87.1 Hypo-osmolality and hyponatremia; J96.11 Chronic respiratory failure with hypoxia; C78.7 Secondary malignant neoplasm of liver and intrahepatic bile duct; C79.51 Secondary malignant neoplasm of bone; C77.9 Secondary and unspecified malignant neoplasm of lymph node, unspecified; G89.3 Neoplasm related pain (acute) (chronic); D69.6 Thrombocytopenia, unspecified; E11.9 Type 2 diabetes mellitus without complications; J44.9 Chronic obstructive pulmonary disease, unspecified; F43.10 Post-traumatic stress disorder, unspecified; I10 Essential (primary) hypertension; R59.1 Generalized enlarged lymph nodes; F17.210 Nicotine dependence, cigarettes, uncomplicated; F32.A Depression, unspecified; Z92.21 Personal history of antineoplastic chemotherapy; Z99.81 Dependence on supplemental oxygen; Z92.25 Personal history of immunosuppression therapy; Z92.3 Personal history of irradiation; Z88.8 Allergy status to other drugs, medicaments and biological substances; Z88.1 Allergy status to other antibiotic agents; Z79.899 Other long term (current) drug therapy; Z79.51 Long term (current) use of inhaled steroids; Z79.891 Long term (current) use of opiate analgesic; Z79.2 Long term (current) use of antibiotics; Z79.84 Long term (current) use of oral hypoglycemic drugs; Z79.52 Long term (current) use of systemic steroids; Z79.82 Long term (current) use of aspirin; Z87.19 Personal history of other diseases of the digestive system; Z98.890 Other specified postprocedural states; Z90.710 Acquired absence of both cervix and uterus
CPT/HCPCS: 32555; 36415; 71045; 71046; 71260; 80048; 80053; 80069; 82947; 83690; 83880; 84484; 85025; 85027; 85520; 85610; 85730; 93005; 93010; 94640; 94760; 96361; 96365-59; 96375-59; 96376-59; 99285-25; A9270; G0378; J1170; J1644; J2405; J3010; J7030; Q9967